=== PATIENT | female | born 1950 | race Caucasian/White ===

== ENCOUNTER 2021-04-03 10:56 | Outpatient (CLI) | payer MEDICARE ==
[2021-04-04 11:26] LABS: SARS-CoV-2 PCR by NAA DETECTED (NotDetected)
== END 2021-04-03 10:57 | disposition home or self-care (01) ==
LOC: CSHLAB 10:56
PROVIDERS: ATTEND Family Medicine
DX: U07.1 COVID-19 (principal); R05.3 Chronic cough
CPT/HCPCS: U0003; U0005